=== PATIENT | female | born 1945 | race Caucasian/White ===

== ENCOUNTER → 2016-11-17 | Outpatient (CLI) | payer MEDICARE, BC ==
[~2016-11-17] MED LIST: FERROUS SULFATE65 MG PO; GUAIFEN-PSE 6001 TER PO; LORTAB 5/500 501 TAB PO; MEDROL 4MG DOSPA4 MG PO; NITROSTAT0.4 MG/TAB SL; NO HOME MEDICATIONS; NORCO 325 MG-51 TAB PO; NORCO 325 MG-7.1 TAB PO; PRIL40 PO; TOPROL XL 25MG25 MG PO; ULTRAM 50MG TAB50 MG PO; ZITHROMAX Z PA250 MG PO; ZOCOR 40MG40 MG PO
== END ==
LOC: COL.RAD 08:00
DX: M25.552 Pain in left hip (principal); M16.12 Unilateral primary osteoarthritis, left hip
CPT/HCPCS: J3301; Q9967

== ENCOUNTER → 2017-02-14 | Outpatient (CLI) | payer MEDICARE, BC | LOC: COL.RAD 10:00 | DX: M25.552 Pain in left hip (principal) | CPT/HCPCS: J3301; Q9967 ==

== ENCOUNTER → 2017-06-20 | Outpatient (CLI) | payer MEDICARE, BC | LOC: COL.RAD 12:09 | DX: M16.12 Unilateral primary osteoarthritis, left hip (principal) | CPT/HCPCS: J3301; Q9967 ==

== ENCOUNTER → 2017-11-20 | Outpatient (CLI) | payer MEDICARE, BC ==
[2017-11-20 16:41] LABS: HIV 1/2 Antibodies Non-Reactive; HIV-1p24 Antigen Non-Reactive
== END ==
LOC: COL.LAB 15:33
PROVIDERS: Orthopaedic Surgery
DX: Z01.812 Encounter for preprocedural laboratory examination (principal); M16.12 Unilateral primary osteoarthritis, left hip

== ENCOUNTER → 2018-03-19 | Outpatient (CLI) | payer MEDICARE, BC ==
[2018-03-19 08:57] LABS: HEMATOCRIT 40.3 % (37.0-47.0); HEMOGLOBIN 12.7 g/dl (12.5-16.0); MEAN CELL VOLUME 86 fl (80.0-100.0); MEAN CORPUSCULAR HEMOGLOBIN 27 pg (27.0-31.0); MEAN CORPUSCULAR HGB CONC 32 g/dl (33.0-37.0); MEAN PLATELET VOLUME 10.2 fl (7.4-10.4); PLATELET COUNT 180 K/mm3 (130-400); RED BLOOD COUNT 4.67 M/mm3 (4.10-5.30); REDCELL DISTRIBUTION WIDTH-CV 14.6 % (11.5-14.5)
[2018-03-19 09:08] LABS: ALBUMIN 3.8 gm/dL (3.5-5.0); BILIRUBIN,TOTAL 0.7 mg/dL (0.0-1.0); CALCIUM 8.9 mg/dL (8.4-10.2); CREATININE, serum 0.95 mg/dL (0.52-1.25); TOTAL PROTEIN 6.6 gm/dL (6.4-8.2)
== END ==
LOC: COL.LAB 08:34
PROVIDERS: Orthopaedic Surgery
DX: Z01.812 Encounter for preprocedural laboratory examination (principal); S82.002A Unspecified fracture of left patella, initial encounter for closed fracture

== ENCOUNTER 2019-08-01 07:48 | Emergency (ER) | payer MEDICARE, BC ==
[~2019-08-01] VITALS: Ht 154.9 cm; Wt 60.0 kg
[2019-08-01 08:06] VITALS: BP 157/81
[2019-08-01 09:44] VITALS: PULSE 71; TEMP 97.8
== END 2019-08-01 09:44 | disposition home or self-care (01) ==
LOC: COL.ER 07:48
DX: S80.02XA Contusion of left knee, initial encounter (principal); S70.02XA Contusion of left hip, initial encounter; Z90.49 Acquired absence of other specified parts of digestive tract; Z98.51 Tubal ligation status; Z98.890 Other specified postprocedural states; Z88.6 Allergy status to analgesic agent; W00.0XXA Fall on same level due to ice and snow, initial encounter

== ENCOUNTER 2020-02-03 07:13 | Day surgery (SDC) | payer MEDICARE, BC ==
[2020-02-03] VITALS (10 sets, daily range): BP systolic 109–142; BP diastolic 53–86; PULSE 65–76; TEMP 98–98.8
[~2020-02-03] VITALS: Ht 157.5 cm; Wt 59.5 kg
[~2020-02-03 07:13] MED LIST changes: +FOSAMAX 70MG TA70 MG PO; +ZOFRAN ODT4 MG PO
[2020-02-03] MEDS ORDERED: CRESTOR40 MG PO (08:00)
[2020-02-03] MEDS ORDERED: ZOFRAN 4MG T4 MG/TAB PO (08:01)
[2020-02-03] MEDS ORDERED: TYLENOL 8 HR PO (08:03)
--- NOTE | 2020-02-03 08:04 | NUR ---
TO RM AT 0721- CALL LIGHT IN REACH AT BEDSIDE.
--- NOTE | 2020-02-03 13:20 | NUR ---
Patient up from OR. Alert and oriented x 3. Assessment complete. Lap sites x 3 with bandaids are CDI. Post op VSS. On 2l of O2 via NC. Post op fluids infusing. Denies pain at this time. Patient oriented to room. No further needs at this time. Will continue to monitor.
--- NOTE | 2020-02-03 13:47 | NUR ---
Patient c/o shoulder pain. Educated patient on gas pain. Provided warm blanket. No further needs at this time.
--- NOTE | 2020-02-03 15:36 | NUR ---
Patient up to bedside commode. States she felt like she could not make it into the restroom. Continues to deny pain. No further needs at this time.
--- NOTE | 2020-02-03 16:26 | NUR ---
Dr. Rogers in to see patient.
--- NOTE | 2020-02-03 18:25 | NUR ---
Patient has done well since up from OR. Tolerating diet without difficulties. Continues to deny pain at this time. Denies further needs at this time. WIll report off to wafer cutter.
--- NOTE | 2020-02-03 19:47 | NUR ---
Patient called out to nurses station c/o pain 01/20 to abdomen. Medications given per orders.
--- NOTE | 2020-02-03 20:00 | NUR ---
Report received, assumed care for night auditor. Assessment complete. VS stable. Denies pain/nausea/shortness of breath. Lap sites [id number]. INT flushes without difficuulty. Plan of care discussed for this shift to include pain control/up out of bed. Verbalizes understanding/denies questions/concerns. Call light in reach. Will monitor.
--- NOTE | 2020-02-04 | NUR ---
Resting eyes closed. No s/s of pain/distress noted. Will monitor.
[2020-02-04 00:02] VITALS: BP 112/62; PULSE 68; TEMP 99
[2020-02-04 04:09] VITALS: BP 124/69; PULSE 76; TEMP 98.3
--- NOTE | 2020-02-04 04:19 | NUR ---
Has been up out of bed to bathroom independently. Received Hayes once early in shift with good pain control. Has reported no pain since. Bandaids x5 to lap sites-CDI. Tolerating diet without nausea-INTd per dr order. Call light in reach. WIll monitor.
[2020-02-04 07:26] VITALS: BP 129/70; PULSE 72; TEMP 98.2
[2020-02-04] MEDS ORDERED: NORCO 325 MG-7.1 TAB PO (08:53)
--- NOTE | 2020-02-04 09:00 | NUR ---
Patient alert and oriented, answers questions appropriately. See assessment. Abdomen soft, non tender, non distended. +Flatus. Lap sites x5 to abdomen with edges well approximated, no redness or drainage noted. Post op exercises reviewed with patient. No c/o at this time.
--- NOTE | 2020-02-04 09:03 | NUR ---
Dr Rogers here to see patient.
--- NOTE | 2020-02-04 10:42 | NUR ---
Discharge instructions reviewed with patient and spouse, verbalized understanding. Discharged via wheelchair to auto/home with family.
== END 2020-02-04 10:43 | disposition home or self-care (01) ==
LOC: SDCO 07:13 → JCC 13:16 → SDCO 02-04 10:43
DX: K44.9 Diaphragmatic hernia without obstruction or gangrene (principal); I25.10 Atherosclerotic heart disease of native coronary artery without angina pectoris; I25.2 Old myocardial infarction; D50.0 Iron deficiency anemia secondary to blood loss (chronic); M81.0 Age-related osteoporosis without current pathological fracture; M19.90 Unspecified osteoarthritis, unspecified site; Z79.899 Other long term (current) drug therapy; Z88.6 Allergy status to analgesic agent; Z80.9 Family history of malignant neoplasm, unspecified
CPT/HCPCS: OP; J0360; J2405; J2704; J3010; J7120

== ENCOUNTER → 2020-02-12 | Outpatient (CLI) | payer MEDICARE, BC ==
[~2020-02-12] MED LIST changes: +CRESTOR40 MG PO; +TYLENOL 8 HR PO; +ZOFRAN 4MG T4 MG/TAB PO
== END ==
LOC: COL.RAD 09:08
DX: K22.8 Other specified diseases of esophagus (principal); R11.10 Vomiting, unspecified; Z98.890 Other specified postprocedural states

== ENCOUNTER 2020-04-17 15:50 | Emergency (ER) | payer MEDICARE, BC ==
[~2020-04-17] VITALS: Ht 152.4 cm; Wt 53.2 kg
[2020-04-17 15:57] VITALS: BP 139/81; TEMP 98.2
[2020-04-17 17:15] VITALS: PULSE 65
== END 2020-04-17 17:15 | disposition home or self-care (01) ==
LOC: COL.ER 15:50
DX: H61.23 Impacted cerumen, bilateral (principal)

== ENCOUNTER → 2020-06-04 | Outpatient (CLI) | payer MEDICARE, BC | LOC: COL.RAD 07:17 | DX: K22.2 Esophageal obstruction (principal) ==

== ENCOUNTER → 2020-08-02 | Outpatient (CLI) | payer MEDICARE, BC | LOC: COL.RAD 10:01 | DX: K44.9 Diaphragmatic hernia without obstruction or gangrene (principal); K22.8 Other specified diseases of esophagus; Z98.890 Other specified postprocedural states ==

== ENCOUNTER 2020-10-05 05:52 | Day surgery (SDC) | payer MEDICARE, BC ==
[~2020-10-05] VITALS: Ht 154.9 cm; Wt 44.8 kg
[2020-10-05] VITALS (11 sets, daily range): BP systolic 98–135; BP diastolic 50–78; PULSE 42–60; TEMP 97.8–98.4
[2020-10-05] MEDS ORDERED: NORCO 325 MG-7.1 TAB PO (06:18)
[2020-10-05] MEDS ORDERED: ZOFRAN ODT4 MG PO (06:18)
[2020-10-05] MEDS ORDERED: TYLENOL 500MG500 MG PO (06:19)
--- NOTE | 2020-10-05 09:30 | NUR ---
Patient up from OR. Alert and oriented x 3. Lap sites x 4 with bandaids are CDI. SCDs to BLE. PAtient denies pain at this time. Post op VSS and post op fluids infusing to right forarm IV. Denies further needs at this time.
--- NOTE | 2020-10-05 12:17 | NUR ---
First visit from the unix system administrator. No needs right now.
--- NOTE | 2020-10-05 17:59 | NUR ---
Patient doing well since up from OR. Has been up independently in the room. Patient continues to deny pain. Tolerating diet at this time. Denies further needs at this time. Will report off to correctional nurse.
--- NOTE | 2020-10-05 21:52 | NUR ---
Pt. laying in bed pt. is A&OX3, assessment complete. INT to rt. forearm patent. Abd. incisions CDI. Pt. denies pain or other needs, call light within reach.
== END 2020-10-06 09:15 ==
LOC: SDCO 05:52 → SURG 09:56 → SDCO 10-06 09:15
DX: R13.10 Dysphagia, unspecified (principal); K44.9 Diaphragmatic hernia without obstruction or gangrene; I25.10 Atherosclerotic heart disease of native coronary artery without angina pectoris; I25.2 Old myocardial infarction; Z96.642 Presence of left artificial hip joint; Z90.710 Acquired absence of both cervix and uterus; Z90.721 Acquired absence of ovaries, unilateral; Z90.79 Acquired absence of other genital organ(s); Z88.6 Allergy status to analgesic agent
CPT/HCPCS: OP; J0690; J1100; J1170; J2405; J2704; J2710; J2765; J3010; J7120

== ENCOUNTER → 2020-12-16 | Outpatient (CLI) | payer MEDICARE, BC ==
[~2020-12-16] MED LIST changes: +TYLENOL 500MG500 MG PO
== END ==
LOC: COL.RAD 12-14 10:00
DX: K22.2 Esophageal obstruction (principal); K22.8 Other specified diseases of esophagus

== ENCOUNTER → 2021-03-10 | Outpatient (CLI) | payer MEDICARE, BC | LOC: COL.RAD 06:33 | DX: R10.9 Unspecified abdominal pain (principal); R11.0 Nausea; R13.10 Dysphagia, unspecified | CPT/HCPCS: A9541 ==

== ENCOUNTER 2021-08-02 16:06 | Emergency (ER) | payer MEDICARE, BC ==
[~2021-08-02] VITALS: Ht 154.9 cm; Wt 38.6 kg
[2021-08-02 16:18] VITALS: TEMP 97.7
[2021-08-02 20:43] VITALS: BP 144/83; PULSE 81
== END 2021-08-02 20:50 | disposition home or self-care (01) ==
LOC: COL.ER 16:06
DX: K94.23 Gastrostomy malfunction (principal)

== ENCOUNTER 2021-09-04 09:39 | Emergency (ER) | payer MEDICARE, BC ==
[~2021-09-04] VITALS: Ht 154.9 cm; Wt 40.0 kg
[2021-09-04 09:51] VITALS: TEMP 97.1
[2021-09-04 12:16] VITALS: BP 112/68; PULSE 70
== END 2021-09-04 12:16 | disposition home or self-care (01) ==
LOC: COL.ER 09:39
DX: K94.23 Gastrostomy malfunction (principal); I50.9 Heart failure, unspecified; E78.5 Hyperlipidemia, unspecified; Z79.899 Other long term (current) drug therapy

== ENCOUNTER 2021-09-08 00:51 | Emergency (ER) | payer MEDICARE, BC ==
[~2021-09-08] VITALS: Ht 154.9 cm; Wt 43.2 kg
[2021-09-08 00:56] VITALS: TEMP 97.2
[2021-09-08 01:35] VITALS: BP 121/63; PULSE 53
[2021-09-09] MEDS ORDERED: CARAFATE 1GM1 G PO (08:05)
[2021-09-09] MEDS ORDERED: PREVACID SOLUTA30 M2 PO (08:06)
[2021-09-09] MEDS ORDERED: ROXICODONE 55 MG/TAB (08:08)
== END 2021-09-08 01:35 | disposition home or self-care (01) ==
LOC: COL.ER 00:51
DX: K94.23 Gastrostomy malfunction (principal)

== ENCOUNTER 2021-09-09 07:04 | Day surgery (SDC) | payer MEDICARE, BC ==
[~2021-09-09] VITALS: Ht 154.9 cm; Wt 40.9 kg
[2021-09-09] MEDS ORDERED: CARAFATE 1GM1 G PO (08:05)
[2021-09-09] MEDS ORDERED: PREVACID SOLUTA30 M2 PO (08:06)
[2021-09-09] MEDS ORDERED: ROXICODONE 55 MG/TAB (08:08)
[2021-09-09 08:32] VITALS: BP 109/59; PULSE 41; TEMP 97.2
[2021-09-09 09:54] VITALS: BP 87/48; PULSE 49; TEMP 97.7
--- NOTE | 2021-09-09 09:54 | NUR ---
Pt to [facility] [address] via cart from the OR. Pt drowsy. Arouses easily. Peg tube dressing clean dry and intact. Pt denies pain or nausea. Sister in room. Pt takes sips of water without difficulties. Call light within reach.
[2021-09-09 10:10] VITALS: BP 119/70; PULSE 42
--- NOTE | 2021-09-09 10:10 | NUR ---
Pt continues to rest. Denies pain or nausea. Call light within reach.
[2021-09-09 10:25] VITALS: BP 152/67; PULSE 40
--- NOTE | 2021-09-09 10:25 | NUR ---
Pt continues to rest. Denies needs.
[2021-09-09 10:40] VITALS: BP 148/68; PULSE 40
--- NOTE | 2021-09-09 10:40 | NUR ---
Pt continues to rest. Denies needs. Pt does not want any food at this time.
[2021-09-09 10:55] VITALS: BP 144/69; PULSE 39
--- NOTE | 2021-09-09 10:55 | NUR ---
Pt continues to rest. Denies needs. Call light within reach.
--- NOTE | 2021-09-09 11:15 | NUR ---
Discharge instructions reviewed. Pt voices understanding. IV site discontinued with all parts intact. Pt up to dress with assistance. Call light within reach.
--- NOTE | 2021-09-09 11:30 | NUR ---
Pt escorted to private car via wheel chair. Pt accompanied home by her sister.
== END 2021-09-09 11:30 | disposition home or self-care (01) ==
LOC: SDCO 07:04
DX: K94.23 Gastrostomy malfunction (principal); R13.10 Dysphagia, unspecified; Z87.19 Personal history of other diseases of the digestive system; E78.5 Hyperlipidemia, unspecified; I25.2 Old myocardial infarction; I25.10 Atherosclerotic heart disease of native coronary artery without angina pectoris; K22.4 Dyskinesia of esophagus; K21.9 Gastro-esophageal reflux disease without esophagitis; Z79.899 Other long term (current) drug therapy
CPT/HCPCS: J0690; J2704; J7120

== ENCOUNTER 2021-10-02 22:47 | Emergency (ER) | payer MEDICARE, BC ==
[~2021-10-02] VITALS: Ht 154.9 cm; Wt 46.8 kg
[~2021-10-02 22:47] MED LIST changes: +CARAFATE 1GM1 G PO; +PREVACID SOLUTA30 M2 PO; +ROXICODONE 55 MG/TAB
[2021-10-02 22:52] VITALS: BP 109/69; TEMP 98.4
[2021-10-02 23:21] VITALS: PULSE 63
== END 2021-10-02 23:21 | disposition home or self-care (01) ==
LOC: COL.ER 22:47
DX: K43.9 Ventral hernia without obstruction or gangrene (principal); E78.5 Hyperlipidemia, unspecified; Z98.84 Bariatric surgery status; Z93.1 Gastrostomy status; Z79.899 Other long term (current) drug therapy

== ENCOUNTER → 2021-12-08 | Outpatient (CLI) | payer MEDICARE, BC ==
--- NOTE | 2021-12-07 08:29 | NUR ---
lmom to call us back today to go over meds, pmh and left instructions on machine.
[~2021-12-08] VITALS: Ht 154.9 cm; Wt 49.3 kg
[~2021-12-08] MED LIST changes: +PREVACID 30MG30 M1 PO
[2021-12-08 12:57] VITALS: BP 128/68; PULSE 70; TEMP 97.4
[2021-12-08 14:15] VITALS: BP 120/59; PULSE 70
[2021-12-08 14:57] LABS: PERITONEAL -POLYMORPHONUCLEAR 1.6 % (0-25)
== END ==
LOC: COL.LAB 12:33 → COL.RAD 12:33
PROVIDERS: Family Medicine
DX: R18.8 Other ascites (principal)

== ENCOUNTER 2021-12-09 09:17 | Outpatient (RCR) | payer MEDICARE, BC | END 2021-12-10 | LOC: MKS.ESL.PT | DX: M79.89 Other specified soft tissue disorders (principal) ==

== ENCOUNTER → 2021-12-26 | Outpatient (CLI) | payer MEDICARE, BC | LOC: COL.RAD 10:38 | DX: R18.8 Other ascites (principal) ==

== ENCOUNTER 2022-01-04 09:00 | Outpatient (RCR) | payer MEDICARE, BC | END 2022-01-10 | disposition home or self-care (01) | LOC: MKS.ESL.PT | DX: M79.89 Other specified soft tissue disorders (principal) ==

== ENCOUNTER 2022-02-03 09:00 | Outpatient (RCR) | payer MEDICARE, BC | END 2022-02-03 10:28 | disposition home or self-care (01) | LOC: MKS.ESL.PT 09:00 | DX: M79.89 Other specified soft tissue disorders (principal) ==

== ENCOUNTER 2022-03-30 11:54 | Observation (INO) | payer MEDICARE, BC ==
[~2022-03-30] VITALS: Ht 154.9 cm; Wt 45.5 kg
[2022-03-30 16:02] LABS: BASO % 0.6 % (0.0-2.0); EOS # 0.1 K/mm3 (0.0-0.7); EOS % 1.4 % (0.0-4.0); GRAN # 3.4 K/mm3 (1.4-6.5); GRAN % 68.7 % (42.2-75.2); LYMPH % 19.8 % (20.0-51.0); MEAN CELL VOLUME 72 fl (80.0-100.0); MEAN CORPUSCULAR HGB CONC 29 g/dl (33.0-37.0); MEAN PLATELET VOLUME 10.8 fl (7.4-10.4); MONO # 0.5 K/mm3 (0.1-0.6); MONO % 9.1 % (1.7-9.3); PLATELET COUNT 216 K/mm3 (130-400); RED BLOOD COUNT 3.95 M/mm3 (4.10-5.30); REDCELL DISTRIBUTION WIDTH-CV 15.3 % (11.5-14.5)
[2022-03-30 16:05] LABS: HEMATOCRIT 28.5 % (37.0-47.0); HEMOGLOBIN 8.2 g/dl (12.5-16.0); MEAN CORPUSCULAR HEMOGLOBIN 21 pg (27-31)
[2022-03-30] MEDS ORDERED: TYLENOL 325MG325 MG PO (16:07)
[2022-03-30] MEDS ORDERED: ROXICODONE 55 MG/TAB PO (16:07)
[2022-03-30] MEDS ORDERED: PREVACID SOLUTA30 M2 PO (16:07)
[2022-03-30 18:11] LABS: INR 1.2 (0.8-3.0); PROTHROMBIN TIME 13.6 SECONDS (9.7-12.8)
--- NOTE | 2022-03-30 18:26 | NUR ---
PT ARRIVED TO THE FLOOR FROM THE ED, ALERT AND ORIENTED, DOESN'T COMPLAIN OF PAIN IF SHE'S NOT MOVING, ORIENTED TO HOSPITAL POLICIES, HIGH FALL RISK IMPLEMENTED PER PROTOCOL, ENRIKE ANSWERED.
[2022-03-30 19:47] VITALS: BP 104/51; PULSE 59; TEMP 97.8
--- NOTE | 2022-03-30 20:55 | NUR ---
PT IN BED, IS ALERT AND ORIENTED X4. HAS LEFT HIP FX, NON SURGICAL. APPLIED ICE PACK. HAS OWN TRISH HOSE ON, PLACED SCDS ON PT. INT TO RFA. TAKES HS MED. DOESN'T WANT TO BE AWAKENED FOR SCHEDULED ES TYLENOL. PT IS TTWB TO LEFT LEG.
--- NOTE | 2022-03-31 02:30 | NUR ---
ASSISTED TO BATHROOM WITH 1 ASSIST/GAIT BELT/WALKER. DOES WELL WITH TTWB TO LEFT LEG. DENIES NEED FOR PAIN MEDS.
[2022-03-31 04:31] VITALS: BP 121/58; PULSE 59; TEMP 98.4
--- NOTE | 2022-03-31 06:32 | NUR ---
Pt complains of nausea, medicated with Zofran 4mg IVP. Assisted to bathroom with gait belt/walker, voids and back to bed.
--- NOTE | 2022-03-31 06:46 | NUR ---
Medicated with Oxycodone 5mg po for left hip pain.
[2022-03-31 07:41] VITALS: BP 110/53; PULSE 59; TEMP 97.8
--- NOTE | 2022-03-31 08:38 | NUR ---
Pt resting in bed eating some breakfast. She stated that she is not a big eater. She also stated that her stomach was bothering her, but she couldn't explain in detail. Pt is not very talkative and mostly answers with a word or two. Has no questions about her stay, discharge or possibly going to a rehab unit for therapy. Call light within reach, will continue to monitor
--- NOTE | 2022-03-31 09:39 | NUR ---
Initial visit; Patient thanked Tappet Adjuster for looking in on her this morning. Juliette says she is doing well and would like to have Tappet Adjuster keep her in her prayers. Tappet Adjuster offered God's blessings and will keep her on her prayer list.
[2022-03-31 11:21] VITALS: BP 84/40; PULSE 56; TEMP 98.2
--- NOTE | 2022-03-31 11:52 | NUR ---
Gas Meter Repairer met with patient to discuss discharge planning. Patient lives in [place] and sees Dr. Francisco for primary care. Patient obtains medications from [facility] with no difficulties and does not use any DME. 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 Patient reports her son, Freeman (ph#[phone]) and sister, Yenny (ph#[phone]) are her DPOA-HC. Patient met with [facility] about a rehab stay. Patient is agreeable to this and [facility] advised they can accept patient. Discharge Plan: [facility]
[2022-03-31] MEDS ORDERED: TYLENOL 500MG500 MG PO (11:57)
--- NOTE | 2022-03-31 12:26 | NUR ---
Pt doing well, she is currently sitting up in the chair. Pt aware that she will be going to [facility], no questions. Call light within reach
--- NOTE | 2022-03-31 14:32 | NUR ---
Pt has continued to do well. Pain controlled with Tylenol. Pt has been sitting up in the chair most of the day. She did rest off and on some this afternoon. Pt is discharging to [facility] at this time
== END 2022-03-31 14:42 ==
LOC: COL.ER 11:54 → SURG 15:45
PROVIDERS: Physician Assistant; ADMIT Internal Medicine
DX: S72.145A Nondisplaced intertrochanteric fracture of left femur, initial encounter for closed fracture (principal); M97.02XA Periprosthetic fracture around internal prosthetic left hip joint, initial encounter; G89.11 Acute pain due to trauma; E78.5 Hyperlipidemia, unspecified; K44.9 Diaphragmatic hernia without obstruction or gangrene; W01.0XXA Fall on same level from slipping, tripping and stumbling without subsequent striking against object, initial encounter; Y93.01 Activity, walking, marching and hiking; Y92.009 Unspecified place in unspecified non-institutional (private) residence as the place of occurrence of the external cause; Z96.642 Presence of left artificial hip joint; Z93.1 Gastrostomy status; Z79.899 Other long term (current) drug therapy
CPT/HCPCS: G0378; J2405

== ENCOUNTER 2022-03-31 14:58 | Inpatient (IN) | payer MEDICARE, BC ==
[~2022-03-31] VITALS: Ht 154.9 cm; Wt 44.8 kg
[~2022-03-31 14:58] MED LIST changes: +ROXICODONE 55 MG/TAB PO; +TYLENOL 325MG325 MG PO
[2022-03-31 17:35] VITALS: BP 96/45; PULSE 55; TEMP 97.3
--- NOTE | 2022-03-31 20:15 | NUR ---
PT RESTING IN BED. PLEASANT AND COOPERATIVE. ALERT AND ORIENTED. ASSISTED MIN 1 WITH WALKER TO BR TTWB LLE. NEEDED HELP MOVING RT LEG OVER TO EDGE OF BED. VOIDED. PT WEARS BRIEFS FOR STRESS INCONT. BACK TO BED. NEEDED HELP LIFTING LEGS INTO BED. G TUBE CLAMPED. SL RED AT SITE. AREA CLEANED NEW DRSG APPLIED. TRISH HOSE ON. DARIELA APPLY SCD'S. CALL LIGHT IN REACH. BED ALARM SET. SEE MAR FOR ROXICODONE GIVEN FOR LT LEG PAIN.
--- NOTE | 2022-03-31 21:00 | NUR ---
WALKED INTO TO BR TO CHECK ON PT IN WHICH SHE FACING THE TOILET DRAINING HER G TUBE APPROX 15CC. SHE REPORTED SHE HAS BEEN DOING THIS SINCE SHE GOT HER GTUBE AND SHE WAS INSTRUCTED TO DO THIS. ENC PT NOT TO CONTINUE TO EMPTY G TUBE THIS WAS PART OF HER NUTRITION. WILL CLARIFY WITH DR REGARDING FLUSHING GTUBE.
[2022-04-01 05:38] VITALS: BP 105/48; PULSE 63; TEMP 98.3
--- NOTE | 2022-04-01 05:55 | NUR ---
PT AWAKE. TAKES EARLY AM PILLS WHOLW WITH WATER. DENIES NEED FOR PAIN MED. UP TO BR EARLIER. NO NEEDAS.
--- NOTE | 2022-04-01 06:48 | NUR ---
Shift report received from car shifter RN
--- NOTE | 2022-04-01 10:28 | NUR ---
Pt off the unit to work with Group Therapy
--- NOTE | 2022-04-01 14:34 | NUR ---
SW met with pt to complete intake. Pt lives at home alone and she is a . Her next of kin is her son, Freeman [phone]. Pt was independent with ADLs prior to being admitted ti hospital and does not use any DME. Pt pcp is Ross Woodruff and gets medications from [facility]. Pt reports she would like to go home after [facility]. DC: Home with family
--- NOTE | 2022-04-01 14:51 | NUR ---
Pt. sleeping in recliner with BLE elevated. She arouses easily from sleep. PEG tube was flushed before lunch w/ 30 mL water as ordered w/out difficulty. PEG site dressing CDI - this was changed during the prior shift. Pt. denying pain/discomfort. Call light is in her reach. Chair alarm is on.
[2022-04-01 17:22] VITALS: BP 108/62; PULSE 57; TEMP 98
--- NOTE | 2022-04-01 20:30 | NUR ---
PT RESTING IN BED. SEE MAR FOR ROXICODONE GIVEN. GTUBE RESIDUAL 60CC. FLUSHED 30CC WITH EASE. SITE LOOKS LESS RED. NO DRAINAGE AT SITE. CALL LIGHT IN REACH. BED ALARM SET.
--- NOTE | 2022-04-01 20:50 | NUR ---
INT NEEDLE DC'D FROM RT F/A. SITE CLEAR.
[2022-04-02 05:29] VITALS: BP 117/57; PULSE 57; TEMP 98.3
--- NOTE | 2022-04-02 06:45 | NUR ---
Shift report received from production supervisor off shift RN
--- NOTE | 2022-04-02 09:29 | NUR ---
Pt. resting in bed. HOB is approx 30 degrees. PEG site w/ scant amt. de [place] rosa drainage. PEG site cleaned. Clean gauze placed around site. Jevity 1.5 michael TF administered per order. PEG tube flushed w/ 30 mL water pre- and post- TF. Pt. denying abd. pain/discomfort after feeding. Abd. is soft w/ + BS. Pt. denies further needs at this time. Call light is within her reach. Bed alarm is on.
--- NOTE | 2022-04-02 14:36 | NUR ---
Pt. reporting pain to coccyx. Pt. assisted from recliner to bed for position change. Skin to sacrum is reddened but blanches. Skin remains intact at this time. Allevyn Life Sacrum foam applied. Discussed with patient frequent position changes are important to prevent skin breakdown. Pt. v/u and had no further questions. Call light is in her reach. Bed alarm is on
[2022-04-02 16:56] VITALS: BP 105/46; PULSE 66; TEMP 98.9
[2022-04-03 05:40] VITALS: BP 123/59; PULSE 62; TEMP 97.9
--- NOTE | 2022-04-03 07:02 | NUR ---
BEDSIDE REPORT DONE .Patient resting in bed with call light in reach.
[2022-04-03 07:22] LABS: BASO % 0.5 % (0.0-2.0); EOS # 0.1 K/mm3 (0.0-0.7); EOS % 2.6 % (0.0-4.0); GRAN # 2.4 K/mm3 (1.4-6.5); LYMPH # 1.3 K/mm3 (1.2-3.4); MEAN CELL VOLUME 70 fl (80.0-100.0); MEAN CORPUSCULAR HGB CONC 30 g/dl (33.0-37.0); MEAN PLATELET VOLUME 11.1 fl (7.4-10.4); MONO # 0.4 K/mm3 (0.1-0.6); MONO % 8.7 % (1.7-9.3); PLATELET COUNT 214 K/mm3 (130-400); RED BLOOD COUNT 3.63 M/mm3 (4.10-5.30); REDCELL DISTRIBUTION WIDTH-CV 15.7 % (11.5-14.5)
[2022-04-03 07:28] LABS: HEMATOCRIT 25.4 % (37.0-47.0); HEMOGLOBIN 7.5 g/dl (12.5-16.0); MEAN CORPUSCULAR HEMOGLOBIN 21 pg (27-31)
[2022-04-03 07:43] LABS: ALBUMIN 2.6 gm/dL (3.4-4.8); BILIRUBIN,TOTAL 0.5 mg/dL (0.2-1.2); CALCIUM 8.4 mg/dL (8.4-10.2); CREATININE, serum 0.91 mg/dL (0.57-1.11); MAGNESIUM 1.8 mg/dL (1.6-2.6); PHOSPHOROUS 3.4 mg/dL (2.3-4.7); POTASSIUM 4.5 mmol/L (3.5-4.5); TOTAL PROTEIN 5.5 gm/dL (6.2-8.1)
--- NOTE | 2022-04-03 10:55 | NUR ---
ASSESSMENT DONE. PATIENT ALERT AND ORIDENT X 4 WITH NO MEMORY ISSUE. LUNG CLEAR IN ALL LOBES. BOWEL SOUND ACTIVEN IN ALL 4 QUADS.
[2022-04-03 18:25] VITALS: BP 125/60; PULSE 62; TEMP 98.8
--- NOTE | 2022-04-03 19:00 | NUR ---
RECEIVED CHANGE OF SHIFT REPORT FROM DAY SHIFT RN. EXIT ALARMS ON WHEN IN BED OR UP IN CHAIR. CALL LIGHT WITHIN REACH.
--- NOTE | 2022-04-03 19:27 | NUR ---
RECEIVED NEW ORDER FOR Collarity TWICE A DAY. NEW ORDER WAS PLACE IN TODAY BUT NEVER CAME UP. WE CALLED AROUND 515PM AND SPOKE WITH DONAVON WHO STATED THAT SHE SEE THE ORDER AND WILL BRING IT UP SOON. AT THIS TIME THE Collarity WAS NOT BROUGHT UP. TRY CALLING THE KITCHEN BUT IT WAS CLOSED.
[2022-04-04 05:10] VITALS: BP 144/69; PULSE 68; TEMP 97.6
--- NOTE | 2022-04-04 06:45 | NUR ---
CHANGE OF SHIFT REPORT GIVEN TO DAY SHIFT RNJASMYNE.
--- NOTE | 2022-04-04 06:55 | NUR ---
BEDSIDE REPORT DONE ORDER. PATIENT RESTING IN BED WITH NO DISTRESS. CALL LIGHT IN REACH.
--- NOTE | 2022-04-04 10:28 | NUR ---
SW contact both the patient's sister Yenny to arrange a family meeting for 04/05 and message left with the [employer] . Phone call made to the patient's son Freeman. Explained what the family meeting would look like and what would be discussed. Freeman is in agreement with attending meeting.
--- NOTE | 2022-04-04 10:30 | NUR ---
ASSESSMENT DONE ORDER. PATIENT ALERT X 4 WITH NO MEMORY ISSUE. STILL AN ACTIVEN RN. LUNG SOUND CLEAR. BOWEL SOUND ACTIVE WITH A BOWEL MOVEMENT TODAY. PATIENT EATING ABOUT 50% OF HER FOOD PLUS JEVITY VIA PEG TUBE. PATIENT ABLE TO WALK WITH WALKER AND GAIT BELT. STILL SLIGHTLY UNDSTEADY ON LEGS DUE TO HIP/LEG FRACTURE. PATIENT TTWB ON LEFT LEG. PATIENT WAS ABLE TO GET HER UPPER CLOTHS ON BUT LOWER WAS SLIGHTLY IN ISSUE. PATIENT GETTING PT,OT,ST DAILY WHILE SHE HERE AT THE HOSPITAL
--- NOTE | 2022-04-04 15:00 | NUR ---
PATIENT WAS ABLE TO GIVE HER SELF THE JEVITY VIA PEG TUBE. SHE STATED THAT SHE USE OF DOING IT AND WILL HELP IF NEEDED.
[2022-04-04 16:57] VITALS: BP 109/47; PULSE 66; TEMP 98
--- NOTE | 2022-04-04 19:27 | NUR ---
REQUESTED AND GIVEN ZOFRAN FOR C/O SOME NAUSEA AT THIS TIME.
--- NOTE | 2022-04-04 23:03 | NUR ---
PT ASSESSED WHILE IN BED. NO COMPLAINTS AT THIS TIME. PT DOES HER OWN TUBE FEEDS INDEPENDENTLY. WILL CONTINUE TO MONITOR.
[2022-04-05 05:23] VITALS: BP 118/65; PULSE 65; TEMP 98.4
--- NOTE | 2022-04-05 07:05 | NUR ---
Shift report received from shift supervisor rn RN
--- NOTE | 2022-04-05 10:11 | NUR ---
Pt sitting up in recliner w/ BLE elevated on footrest. She denies pain/discomfort. TF completed as ordered. Gastric residual was approx 20 mL. PEG site dressing is CDI. Pt. denies additional needs. Call light is in her reach. Chair alarm is on
--- NOTE | 2022-04-05 10:40 | NUR ---
Patient/Family meeting conducted w/ pt, son, & sister. Also present was the PT, OT, ST, Dietitian, & director of district office. The team talked about how pt has been doing, which pt & family agreed she was doing much better. Informed them of d/c for 04/07/22 w/ home health. They asked questions, which the team answered.
--- NOTE | 2022-04-05 11:22 | NUR ---
Allevyn Sacrum Foam dressing soiled with BM. New dressing applied. Coccyx remains red but is blanching. Skin is intact. Pt reports continued soreness w/ prolonged sitting/lying down.
[2022-04-05 17:23] VITALS: BP 100/51; PULSE 61; TEMP 97.9
--- NOTE | 2022-04-05 18:40 | NUR ---
[facility] TF delivered around 1819. TF completed as ordered. Gastric residual was < 10 mL. Pt. denies nausea/abd. pain. Passing some flatus this evening. She denies general pain/discomfort and denies additional needs. Call light is in her reach. Bed alarm is on
--- NOTE | 2022-04-05 20:23 | NUR ---
PT A&OX4 SITTING ON THE SIDE OF THE BED. STANDY ASSIST TO BATHROOM W WALKER. PT DENIES PN. REPORTS NAUSEA AFTER DINNER. MEDS GIVEN AND ASSESSMENT COMPLETE. PEG TUBE DRESSING CDI. VS STABLE. NO NEEDS AT THIS TIME. CALL LIGHT WITHIN REACH.
--- NOTE | 2022-04-05 23:03 | NUR ---
PEG TUBE FLUSHED W 30ML TAP WATER WITHOUT DIFFICULTY.
[2022-04-06 05:54] VITALS: BP 108/45; PULSE 59; TEMP 98.3
--- NOTE | 2022-04-06 06:52 | NUR ---
Shift report received from shift supervisor RN
[2022-04-06 07:04] LABS: HEMATOCRIT 25.3 % (37.0-47.0); HEMOGLOBIN 7.3 g/dl (12.5-16.0)
--- NOTE | 2022-04-06 13:48 | NUR ---
Follow-up visit; Patient doing well and states she will hopefully be discharged tomorrow. She and Senior Marketing Coordinator visited briefly before Physical Therapy arrived and Senior Marketing Coordinator wished her well and offered God's blessings.
--- NOTE | 2022-04-06 16:07 | NUR ---
machine clothing worker met with patient to follow up on HH agency. Patient reports that her had [facility] but they "didn't do anything". After reviewing [email or web address] list, patient would like a referral sent to [facility]. Clinical referral faxed.
[2022-04-06 17:36] VITALS: BP 125/56; PULSE 70; TEMP 98.3
--- NOTE | 2022-04-06 21:05 | NUR ---
PT A&OX4 RESTING IN BED. PT DENIES PN. ASSESSMENT COMPLETE AND MEDS GIVEN. PT REPORTS NAUSEA AND ZOFRAN WAS GIVEN. PEG TUBE DRESSING CDI. NO OTHER NEEDS AT THIS TIME. CALL LIGHT WITHIN REACH.
[2022-04-07 05:56] VITALS: BP 120/60; PULSE 59; TEMP 97.3
--- NOTE | 2022-04-07 06:59 | NUR ---
BEDSIDE REPORT DONE. PATIENT RESTING IN BED WITH NO DISTRESS. CALL LIGHT IN REACH.
[2022-04-07] MEDS ORDERED: FERROUS SU325 MG/TAB PO (08:52)
--- NOTE | 2022-04-07 12:31 | NUR ---
Clinical updates and discharge orders faxed to [facility]. Contact made with Rock who states that she did get the referral and will be in contact with the patient later today to call and schedule. DARLYN presented patient with [employer] form. Education provided and patient verbalizes her agreement with sary's discharge plan. Patient's signed original placed in the patient's chart and copy provided back to the patient.
--- NOTE | 2022-04-07 13:34 | NUR ---
DISCHARGE INSTRUCTION WAS GIVEN ORDER TO PATIENT AND SISTER. BOTH UNDERSTOOD ALL INSTRUCTION BUT HAD QUESTION REGARDING THE HOME HEALTH . I EPXLAIN THAT THEY WILL BE CALL HER TODAY IF NOT TOMORROW TO SET UP A TIME TO SCHEDULE APPOINTMENT. EXPLAIN ABOUT NURSE AND THERAPY. ALL UNDERSTOOD. TOOK PATIENT DOWN TO ADMISSION WHERE HER SON CAR WAS. PATIENT NEED DEBORAH HELP GETTING IN THE CAR.
--- NOTE | 2022-04-07 14:40 | NUR ---
Discharge QIM scores were reviewed by the team. Code of 6 chosen for walk 50 feet w/ 2 turns was determined by team discussion to be the most usual performance for this patient during the discharge assessment period. Code of 6 chosen for walk 150 feet was determined by team discussion to be the most usual performance for this patient during the discharge assessment period.--Kenyatta Diallo, PD
== END 2022-04-07 13:33 | disposition home health service (06) | DRG 561 ==
PROVIDERS: Physical Medicine & Rehabilitation Sports Medicine; ADMIT Internal Medicine
DX: S72.145D Nondisplaced intertrochanteric fracture of left femur, subsequent encounter for closed fracture with routine healing (principal); M97.02XD Periprosthetic fracture around internal prosthetic left hip joint, subsequent encounter; R26.89 Other abnormalities of gait and mobility; Z66 Do not resuscitate; E78.5 Hyperlipidemia, unspecified; I25.2 Old myocardial infarction; Z88.8 Allergy status to other drugs, medicaments and biological substances; Z96.642 Presence of left artificial hip joint; Z79.891 Long term (current) use of opiate analgesic; Z79.899 Other long term (current) drug therapy; K21.9 Gastro-esophageal reflux disease without esophagitis; Z93.1 Gastrostomy status; Z73.6 Limitation of activities due to disability; W19.XXXD Unspecified fall, subsequent encounter; Y92.009 Unspecified place in unspecified non-institutional (private) residence as the place of occurrence of the external cause; D64.89 Other specified anemias; K44.9 Diaphragmatic hernia without obstruction or gangrene
CPT/HCPCS: J1650

== ENCOUNTER → 2023-12-14 | Outpatient (CLI) | payer MEDICARE, BC ==
[~2023-12-14] MED LIST changes: +FERROUS SU325 MG/TAB PO
== END ==
LOC: COL.RAD 07:53
DX: K44.9 Diaphragmatic hernia without obstruction or gangrene (principal)